=== PATIENT | female | born 1980 | race Caucasian/White ===

== ENCOUNTER 2024-05-19 11:18 | Emergency (ER) | payer SELFPAY | END 2024-05-19 12:25 | disposition home or self-care (01) | LOC: MADERS 11:18 | DX: R56.9 Unspecified convulsions (principal); Z76.0 Encounter for issue of repeat prescription | CPT/HCPCS: 99283 ==

== ENCOUNTER 2024-06-05 10:45 | Emergency (ER) | payer SELFPAY | END 2024-06-05 11:56 | disposition home or self-care (01) | LOC: MADERS 10:45 | DX: G40.909 Epilepsy, unspecified, not intractable, without status epilepticus (principal); Z91.038 Other insect allergy status | CPT/HCPCS: 99283 ==

== ENCOUNTER 2025-05-09 08:26 | Emergency (ER) | payer SELFPAY ==
[2025-05-09 09:40] LABS: BHCG - Serum Negative (NEGATIVE); Pregs Control Background? CLEAR/WHITE (CLR/WHITE); Pregs Control Bar Appear? YES (CONTROL BAR)
[2025-05-09 09:46] LABS: ALT (SGPT) 19 U/L (Less than 34); AST (SGOT) 51 U/L (11-34); Albumin 4.4 g/dL (3.1-4.5); Alkaline Phosphatase 70 U/L (40-110); Anion Gap 16 mmol/L (10-20); BUN (Urea Nitrogen) 14 mg/dL (7.0-18.7); Bilirubin, Total 0.2 mg/dL (0.3-1.2); Calc. Creatinine Clearance 0 mL/min (70-130); Calcium 9.2 mg/dL (7.8-10.44); Carbon Dioxide 21 mmol/L (22-29); Chloride 104 mmol/L (98-107); Globulin 3.5 g/dL (2.4-3.5); Glucose 109 mg/dL (70-105); Magnesium 1.9 mg/dL (1.6-2.6); Potassium 4.1 mmol/L (3.5-5.1); Sodium 137 mmol/L (136-145)
[2025-05-09 09:48] LABS: Hematocrit 44.9 % (36.0-47.0); Hemoglobin 14.4 g/dL (12.0-16.0); MDiff Complete? YES; Macrocytosis SLIGHT = 6-15 cells (100X) (0-5/hpf); Mean Corpuscular Hemoglobin 33.9 pg (27.0-31.0); Mean Corpuscular Volume 105.5 fl (78.0-98.0); Platelet Adequacy Comment Appears Adequate; Platelet Count 215 10x3/uL (130-400); Red Blood Cell (RBC) Count 4.25 mill/uL (4.20-5.40); White Blood Cell (WBC) Count 6.2 10x3/uL (4.8-10.8)
[2025-05-09] MEDS ORDERED: Ondansetron PF 4 MG/2 ML Vial ONE ×2 (10:08→10:09)
[2025-05-09] MEDS ORDERED: Ketorolac Tromethamine 30 MG (1 mL) VIAL ONE (10:08)
[2025-05-09 10:45] LABS: Glucose, Urine (Dipstick) Negative (Negative); Leukocyte Negative (Negative); Protein, Urine (Dipstick) 100 mg/dL (Neg-Trace); Specific Gravity, Urine 1.025 (1.005-1.030)
[2025-05-09 10:46] LABS: Bacteria/HPF Rare-Few HPF (None Seen); CAUTI Indications for Culture Pelvic or flank pain; WBC/HPF 0-3 HPF (0-3)
[2025-05-09 10:47] LABS: Urine Culture Reflex No No
[2025-05-09] MEDS ORDERED: Oseltamivir 75 MG CAP ONE (12:12)
[2025-05-09 16:38] LABS: #Basophils 0.0 thou/uL (0.0-0.2); #Eosinophils 0.0 thou/uL (0.0-0.7); #Lymphocytes 0.3 thou/uL (1.20-3.40); #Monocytes 0.2 thou/uL (0.11-0.59); #Neutrophils 3.8 thou/uL (1.40-6.50); %Basophils 0.7 % (0.0-1.0); %Eosinophils 0.0 % (0.0-10.0); %Lymphocytes 6.1 % (21.0-51.0); %Monocytes 3.7 % (0.0-10.0); %Neutrophils 89.5 % (42.0-75.0); Hematocrit 39.1 % (36.0-47.0); Hemoglobin 12.6 g/dL (12.0-16.0); MDiff Complete? YES; Macrocytosis SLIGHT = 6-15 cells (100X) (0-5/hpf); Mean Corpuscular Hemoglobin 34.2 pg (27.0-31.0); Mean Corpuscular Volume 106.4 fl (78.0-98.0); Platelet Adequacy Comment Appears Adequate; Platelet Count 194 10x3/uL (130-400); Red Blood Cell (RBC) Count 3.67 mill/uL (4.20-5.40); White Blood Cell (WBC) Count 4.2 10x3/uL (4.8-10.8)
== END 2025-05-09 17:30 | disposition home or self-care (01) ==
LOC: MADERS 08:26
DX: J11.1 Influenza due to unidentified influenza virus with other respiratory manifestations (principal); E86.0 Dehydration
CPT/HCPCS: 36415; 71045; 80053; 81001; 83605; 83735; 84703; 85025; 87040; 87081; 87428; 87430; 96365; 96367; 96375; J0692; J1885; J2405; J2919; J3373; J7030; J7050